=== PATIENT | male | born 1960 | race Caucasian/White ===

== ENCOUNTER 2022-02-27 12:47 | Emergency (ER) | payer OTHER ==
[2022-02-27 13:07] VITALS: TEMP 98.4; BMI 23.0
[2022-02-27 13:37] VITALS: BP 119/75; PULSE 88
[2022-02-27] MEDS ORDERED: FAMOTIDINE 20 MG/50 ML IVPB 20 MG/50 ML MG IVPB ONE ×2 (14:00→14:11)
[2022-02-27] MEDS ORDERED: SODIUM CHLORIDE 0.9% 500 ML INFUS.BAG IV ONE (14:02)
[2022-02-27 14:34] LABS: BASO % 0.4 % (0-2.0); EOS % 0.3 % (0-4.5); HEMATOCRIT 40.4 % (35.4-49); LYMPH % 17.6 % (8-40); MCH 30.2 pg (25.7-33.7); MCHC 34.6 g/dl (32.0-35.9); MEAN CELL VOLUME 87.2 fl (80-96); MEAN PLT VOLUME 9.4 fl (7.5-11.1); MONO % 8.9 % (3.8-10.2); NEUT % 72.8 % (42.8-82.8); PLATELET COUNT 253 10^3/uL (134-434); RBC 4.64 M/mm3 (4.00-5.60); RDW 13.1 % (11.9-15.9); WHITE BLOOD COUNT 8.3 K/mm3 (4.0-10.0)
[2022-02-27 14:41] LABS: INR 1.08 (0.83-1.09); PROTHROMBIN TIME (PATIENT) 12.4 SEC (9.7-13.0)
[2022-02-27 14:44] LABS: ACTIVATED PTT 30.9 SECONDS (25.2-36.5)
[2022-02-27 14:58] LABS: CALCIUM 8.6 mg/dL (8.5-10.1)
[2022-02-27 14:59] LABS: ALBUMIN 3.7 g/dl (3.4-5.0); BLOOD UREA NITROGEN 18.8 mg/dL (7-18)
[2022-02-27 15:02] LABS: CREATININE 1.1 mg/dL (0.55-1.3)
[2022-02-27 15:03] LABS: BILIRUBIN,TOTAL 1.3 mg/dL (0.2-1); TOT PROT 7.2 g/dl (6.4-8.2)
[2022-02-27 15:47] LABS: PH,URINE 7.5 (5.0-8.0); URINE APPEARANCE CLEAR; URINE BILIRUBIN NEGATIVE (NEGATIVE); URINE COLOR YELLOW; URINE GLUCOSE (UA) 2+ (NEGATIVE); URINE KETONE TRACE (NEGATIVE); URINE LEUK ESTERASE NEGATIVE (NEGATIVE); URINE NITRITE NEGATIVE (NEGATIVE); URINE PROTEIN TRACE (NEGATIVE)
== END 2022-02-27 17:55 | disposition home or self-care (01) ==
LOC: JER 12:47
PROC: 3E033GC Introduction of Other Therapeutic Substance into Peripheral Vein, Percutaneous Approach (ICD-10-PCS; principal; 2022-02-27)
DX: R10.13 Epigastric pain (principal); R11.0 Nausea
CPT/HCPCS: 36415; 71045-TC-FY; 71101-TC-RT-FY; 74176-TC; 80053; 81003; 83690; 84484; 85025; 85610; 85730; 87086; 93005; 93010; 99285-25; C9803-CS; U0003; U0005

== ENCOUNTER 2025-04-11 12:02 | Emergency (ER) | payer OTHER ==
[2025-04-11 12:26] VITALS: RESP 18; TEMP 99.2; BMI 21.9
[2025-04-11] MEDS ORDERED: FAMOTIDINE 20 MG/50 ML IVPB 20 MG/50 ML MG IVPB ONE (13:00)
[2025-04-11] MEDS ORDERED: ACETAMINOPHEN INJECTION 100 ML ONE (13:00)
[2025-04-11] MEDS: ACETAMINOPHEN 1000 MG/100 ML BAG IVPB ONE (13:11)
[2025-04-11] MEDS: SODIUM CHLORIDE 0.9% 500 ML INFUS.BAG IV ONE (13:11)
[2025-04-11] MEDS: FAMOTIDINE 20 MG/50 ML IVPB 20 MG/50 ML MG IVPB ONE (13:12)
[2025-04-11 13:21] LABS: ABSOLUTE IMMATURE GRANULOCYTES 0.07 x10^3/uL (0.0-0.031); BASOPHILS # 0.04 x10^3/uL (0.01-0.08); EOSINOPHIL % 1.1 % (0.8-7.0); EOSINOPHILS # 0.17 x10^3/uL (0.04-0.54); MCHC 32.8 g/dl (32.3-36.5); MEAN CELL VOLUME 85.9 fl (79.0-92.2); MEAN PLT VOLUME 10.6 fl (9.4-12.4); MONOCYTE # 1.11 x10^3/uL (0.30-0.82); MONOCYTE % 6.9 % (5.3-12.2); RDW 12.4 % (12.2-16.4)
[2025-04-11 13:58] LABS: GLUCOSE,RANDOM 243.0 mg/dL (74-106); TOT PROT 8.2 g/dl (6.4-8.2)
[2025-04-11 14:00] LABS: CO2 25.0 mmol/L (21-32)
[2025-04-11 14:01] LABS: ALK PHOS 140.0 U/L (40-150)
[2025-04-11 14:04] LABS: CREATININE 0.7 mg/dL (0.55-1.3); SGOT/AST 33.0 U/L (5-34); SGPT/ALT 15.0 U/L (0-55)
[2025-04-11] MEDS: LACTATED RINGERS SOLUTION 1000 ML INFUS.BAG IV ONE (14:21)
[2025-04-11] MEDS ORDERED: MAGNESIUM SULFATE IN WATER 2 GM/50 ML IVPB IVPB ONE (14:22)
[2025-04-11 14:25] LABS: HIV INTERPRETATION NEGATIVE (NEGATIVE)
[2025-04-11 14:26] LABS: HCV DIAGNOSTIC IN-HOUSE W/RFLX NON-REACTIVE (NONREACTIVE)
[2025-04-11] MEDS: MAGNESIUM SULF 50% (8.12 MEQ/2 ML-1 GM VIAL) IVPB ONE (14:37)
[2025-04-11 15:06] VITALS: BP 118/61; PULSE 86
== END 2025-04-11 16:03 | disposition home or self-care (01) ==
LOC: JER 12:02
PROC: 3E033GC Introduction of Other Therapeutic Substance into Peripheral Vein, Percutaneous Approach (ICD-10-PCS; principal; 2025-04-11)
PROC: 3E033NZ Introduction of Analgesics, Hypnotics, Sedatives into Peripheral Vein, Percutaneous Approach (ICD-10-PCS; 2025-04-11)
PROC: 3E033GC Introduction of Other Therapeutic Substance into Peripheral Vein, Percutaneous Approach (ICD-10-PCS; 2025-04-11)
DX: E83.42 Hypomagnesemia (principal); R19.7 Diarrhea, unspecified; R00.0 Tachycardia, unspecified; R53.1 Weakness; R53.81 Other malaise
CPT/HCPCS: 36415; 80053; 83690; 83735; 85025; 86803; 87045; 87046; 87389; 87637-QW; 93005; 93010; 99291